=== PATIENT | male | born 1965 | race Caucasian/White ===

== ENCOUNTER 2019-03-08 08:55 | Emergency (ER) | payer BC ==
--- NOTE | 2019-03-08 08:56 | EDM.PDOC ---
ED HPI GENERAL MEDICAL PROBLEM - General Stated Complaint: PT FELL Time Seen by Provider: 03/08/19 08:55 Source of Information: Reports: Patient History Limitations: Reports: No Limitations - History of Present Illness INITIAL COMMENTS - FREE TEXT/NARRATIVE: HISTORY AND PHYSICAL: History of present illness: Patient is a 63-year-old male presenting to the emergency room for posterior rib and sacral back pain. Patient reports falling down the stairs on Friday. He states he fell down 4 stairs and is unsure what he landed on or how he landed. He states he did hit his head, denies loss of consciousness. Denies headache, dizziness, blurring of vision, nausea, or vomiting. Patient states he has right posterior lower back pain starting at the ribs going all the way down to his sacrum. Patient describes his pain at a 5 out of 10 while sitting. Aggravating factors including coughing, which he describes as "the worst pain" or movement, alleviating factors include sitting still. Patient states "I can't breathe". He denies chest pain, but pain located in his right posterior ribs. He does have a superficial laceration to the medial side of his fourth and fifth digits on his left hand and left foot. Tdap has been UTD within the last 5 years. Review of systems: As per history of present illness and below otherwise all systems reviewed and negative. Past medical history: As per history of present illness and as reviewed below otherwise noncontributory. Surgical history: As per history of present illness and as reviewed below otherwise noncontributory. Social history: See social history for further information Family history: As per history of present illness and as reviewed below otherwise noncontributory. Physical exam: General: Well-nourished and well-developed 53-year-old male. Alert and orientated. Nontoxic in appearance. Vital signs are stable and have been reviewed by me. HEENT: Small scrape to the right side of his head, normocephalic, pupils equal and reactive bilaterally, negative for conjunctival pallor or scleral icterus, mucous membranes moist, TMs normal bilaterally, throat clear, neck supple, nontender, trachea midline. No drooling or trismus noted. No meningeal signs. No hot potato voice noted. Lungs: Inspiratory and expiratory wheezing, decrease lung sounds in the posterior right lower lobe. Right posterior chest wall pain with palpation. Heart: S1S2, regular rate and rhythm without overt murmur Abdomen: Soft, nondistended, nontender. Negative for masses or hepatosplenomegaly. Negative for costovertebral tenderness. C-Spine/Back: Tenderness upon palpation to the sacrum. No pinpoint tenderness to the cervical, thoracic, lumbar spine. No crepitus, step-offs or obvious deformities. Patient is ambulatory into the emergency room without difficulty or deficit. Able to rock back on heels and walk on toes. Denies any urinary or fecal incontinence. Denies any numbness, tingling or saddle paresthesia. Pelvis: Stable nontender. Skin: Superficial laceration/abrasion to the medial side of the fourth and fifth digits of the left hand and his left great toe. Otherwise skin is intact, warm, dry See HEENT. Extremities: Moves all extremities per self without difficulty or deficits, negative for cords or calf pain. Neurovascular unremarkable. Neuro: Awake, alert, oriented. Cranial nerves II through XII unremarkable. Cerebellum unremarkable. Motor and sensory unremarkable throughout. Exam nonfocal. Notes: On arrival to the ER his oxygen was 88% on room air. He was put on 4L via Nasal Cannula, which upped his oxygen saturation to 92%. Upon reevaluating the patient he is 94% on room air. Wound care was provided for the superficial abrasion/lacerations. The x-ray reports show no acute findings. We discussed using an incentive spirometer for home. Medication and supportive care measures were reviewed and discussed. Voices understanding and is agreeable to plan of care. Denies any further questions or concerns at this time. Diagnostics: Chest X-Ray 2V Therapeutics: 4L via [place] Prescription: [place] Albuterol Inhaler Impression: Fall Rib Injury, right Abrasion Plan: 1. Keep the abrasions clean and dry. Continue to monitor for signs of improvement. You may use bacitracin as needed. 2. Please use your incentive spirometer to avoid/prevent any further complications related to your rib injury. 3. Tylenol and/or ibuprofen as needed for pain management. [place] for moderate to severe pain. This medication may cause drowsiness a do not take it will driving her needing to be functioning outside of the house. 4. At the pharmacy or [facility] can fiber picker a "doughnut seat" or cut out cushion to alleviate any tailbone discomfort when sitting for long periods of time. 5. Follow-up with your primary care provider as we discussed. Return to the ED as needed and as discussed. Definitive disposition and diagnosis as appropriate pending reevaluation and review of above. Right Upper Back Pain Score (Numeric/FACES): 10 - Related Data Allergies Allergy/AdvReac Type Severity Reaction Status Date / Time No Known Allergies Allergy Verified 03/08/19 09:12 Home Meds: Home Meds . [No Known Home Meds] 04/05/15 [History] Past Medical History - Past Health History Medical/Surgical History: Denies Medical/Surgical History ED ROS GENERAL - Review of Systems Review Of Systems: ROS reveals no pertinent complaints other than HPI. ED EXAM, GENERAL - Physical Exam Exam: See Below (See dictation) Course - Vital Signs Last Recorded V/S: Last Vital Signs Temp 97.5 F 03/08/19 09:08 Pulse 111 H 03/08/19 09:08 Resp 18 03/08/19 09:08 BP 167/105 H 03/08/19 09:08 Pulse Ox 93 L 03/08/19 09:27 - Orders/Labs/Meds Orders: Active Orders 24 hr Category Date Time Status RT Aerosol Therapy [RC] ASDIRECTED Care 03/08/19 09:15 Active Meds: Medications Discontinued Medications Generic Name Dose Route Start Last Admin Trade Name Freq PRN Reason Stop Dose Admin Albuterol/Ipratropium 3 ml 03/08/19 09:15 03/08/19 09:24 Duoneb 3.0-0.5 Mg/3 Ml NEB 03/08/19 09:16 3 ml ONETIME ONE Administration Albuterol/Ipratropium Confirm 03/08/19 09:15 03/08/19 09:25 Duoneb 3.0-0.5 Mg/3 Ml Administered 03/08/19 09:16 Not Given Dose 3 ml .ROUTE .STK-MED ONE Ketorolac Tromethamine 60 mg 03/08/19 10:43 03/08/19 10:49 Toradol IM 03/08/19 10:44 60 mg ONETIME ONE Administration Departure - Departure Time of Disposition: 11:12 Disposition: Home, Self-Care 01 Clinical Impression: Rib pain on right side, Abrasion Fall Qualifiers: Encounter type: initial encounter Qualified Code(s): W19.XXXA - Unspecified fall, initial encounter - Discharge Information Instructions: Chest Wall Pain, [id number] Referrals: PCP,Unknown [Primary Care Provider] - Additional Instructions: The following information is given to patients seen in the emergency department who are being discharged to home. This information is to outline your options for follow-up care. We provide all patients seen in our emergency department with a follow-up referral. The need for follow-up, as well as the timing and circumstances, are variable depending upon the specifics of your emergency department visit. If you don't have a primary care physician on staff, we will provide you with a referral. We always advise you to contact your personal physician following an emergency department visit to inform them of the circumstance of the visit and for follow-up with them and/or the need for any referrals to a consulting specialist. The emergency department will also refer you to a specialist when appropriate. This referral assures that you have the opportunity for follow-up care with a specialist. All of these measure are taken in an effort to provide you with optimal care, which includes your follow-up. Under all circumstances we always encourage you to contact your private physician who remains a resource for coordinating your care. When calling for follow-up care, please make the office aware that this follow-up is from your recent emergency room visit. If for any reason you are refused follow-up, please contact the [facility] Emergency Department at and asked to speak to the emergency department charge nurse. [facility] [address] [place] [id number] [address] [address] 1. Keep the abrasions clean and dry. Continue to monitor for signs of improvement. You may use bacitracin as needed. 2. Please use your incentive spirometer to avoid/prevent any further complications related to your rib injury. 3. Tylenol and/or ibuprofen as needed for pain management. [place] for moderate to severe pain. This medication may cause drowsiness a do not take it will driving her needing to be functioning outside of the house. 4. At the pharmacy or [facility] can fiber picker a "doughnut seat" or cut out cushion to alleviate any tailbone discomfort when sitting for long periods of time. 5. Follow-up with your primary care provider as we discussed. Return to the ED as needed and as discussed. - My Orders Last 24 Hours: My Active Orders 03/08/19 09:15 RT Aerosol Therapy [RC] ASDIRECTED - Assessment/Plan Last 24 Hours: My Active Orders 03/08/19 09:15 RT Aerosol Therapy [RC] ASDIRECTED
[2019-03-08] MEDS ORDERED: Albuterol/Ipratropium 3.0-0.5 MG/3 ML Neb Soln NEB ONE (09:15)
[2019-03-08] MEDS ORDERED: Albuterol/Ipratropium 3.0-0.5 MG/3 ML Neb Soln ONE (09:15)
[2019-03-08] MEDS ORDERED: Ketorolac 60 MG/2 ML SDV IM ONE (10:43)
--- NOTE | 2019-03-08 11:06 | CR ---
Sacrum and coccyx: Three views of the sacrum and coccyx were obtained. Minimal sclerosis is noted within the inferior right sacroiliac joint. Sacrum and coccyx otherwise appears unremarkable. No fracture or other abnormality is seen. Impression: 1. Slight degenerative sclerosis within the inferior right sacroiliac joint. 2. Three-view sacrum and coccyx study is otherwise unremarkable. Diagnostic code #2 MTDD
--- NOTE | 2019-03-08 11:06 | CR ---
Chest and right ribs: Frontal view of the chest was obtained as well as four views of the right ribs. Comparison: No previous rib or chest x-ray is available. HeaCrt size and mediastinum are normal. Lungs are clear. No discrete fracture or other right sided rib abnormality is appreciated. Impression: 1. Nothing acute is seen on frontal chest x-ray. 2. No discrete right-sided rib abnormality is appreciated. Diagnostic code #1 MTDD
[2019-03-08 15:40] VITALS: BP 166/76; PULSE 87
== END 2019-03-08 11:25 | disposition home or self-care (01) ==
LOC: MW.ED 08:55
DX: S20.311A Abrasion of right front wall of thorax, initial encounter (principal); S61.215A Laceration without foreign body of left ring finger without damage to nail, initial encounter; S61.217A Laceration without foreign body of left little finger without damage to nail, initial encounter; W10.9XXA Fall (on) (from) unspecified stairs and steps, initial encounter
CPT/HCPCS: 71101; 72220; 94640; 96372; 99283; J1885; J7620-GY

== ENCOUNTER 2020-10-04 06:38 | Day surgery (SDC) | payer BC ==
[~2020-10-04 06:38] MED LIST: Lactated Ringers 1,000 ML IV SCH
[2020-10-04] MEDS ORDERED: Propofol 200 MG/20 ML SDV ONE (07:10)
[2020-10-04] MEDS ORDERED: Lidocaine 2% 5 ML SDV ONE (07:10)
[2020-10-04] MEDS ORDERED: Glycopyrrolate 0.2 MG/ML SDV ONE (07:10)
[2020-10-04] MEDS ORDERED: Midazolam 1 MG/ML 2 ML SDV ONE (07:10)
--- NOTE | 2020-10-04 07:26 | PCM.PREANE ---
Preanesthetic Assessment - Anesthesia/Transfusion/Family Hx Anesthesia History: Prior Anesthesia Without Reaction Family History of Anesthesia Reaction: No Transfusion History: No Prior Transfusion(s) - Review of Systems General: No Symptoms Pulmonary: No Symptoms Cardiovascular: No Symptoms Gastrointestinal: No Symptoms Neurological: No Symptoms Other: Reports: None - Physical Assessment NPO Status Date: 10/04/20 NPO Status Time: 00:01 Vital Signs: Last Vital Signs Temp 96.8 F L 10/04/20 06:50 Pulse 84 10/04/20 06:50 Resp 16 10/04/20 06:50 BP 158/102 H 10/04/20 07:10 Pulse Ox 97 10/04/20 06:50 Height: 6 ft 1 in Weight: 183 lb ASA Class: 3 Mental Status: Alert & Oriented x3 Airway Class: Mallampati = 2 Dentition: Reports: Normal Dentition, Broken Tooth/Teeth, Missing Tooth/Teeth ROM/Head Extension: Limited/Partial Lungs: Clear to Auscultation, Normal Respiratory Effort Cardiovascular: Regular Rate, Regular Rhythm - Allergies Allergies/Adverse Reactions: Allergies Allergy/AdvReac Type Severity Reaction Status Date / Time No Known Allergies Allergy Verified 10/04/20 07:16 - Anesthesia Plan Pre-Op Medication Ordered: None - Acknowledgements Anesthesia Type Planned: General Anesthesia Pt an Appropriate Candidate for the Planned Anesthesia: Yes Alternatives and Risks of Anesthesia Discussed w Pt/Guardian: Yes Pt/Guardian Understands and Agrees with Anesthesia Plan: Yes Additional Comments: npo elevated bp when at dr's office, says it normal at home no cv rpoblems tob 1 ppd etoh daily pint of hard liquer a day last used 1 weeks ago hx abuse copd asthma prn inhalers bmi 24 par no questsions PreAnesthesia Questionnaire - Past Health History Medical/Surgical History: Denies Medical/Surgical History HEENT History: Reports: Other (See Below) Other HEENT History: uses reading glasses Cardiovascular History: Other Cardiovascular History: states he gets anxious when he has to wait and his BP goes up Respiratory History: Reports: COPD Gastrointestinal History: Reports: Chronic Diarrhea, GERD Other Gastrointestinal History: current abdominal pain and vomiting Other Genitourinary History: hx of urethral stricture, currently having symptoms again Musculoskeletal History: Reports: Back Pain, Chronic, Fracture Other Musculoskeletal History: hx of fx wrist and fingers Neurological History: Reports: None Psychiatric History: Reports: None Endocrine/Metabolic History: Reports: None Hematologic History: Reports: None Immunologic History: Reports: None Oncologic (Cancer) History: Reports: None Dermatologic History: Reports: None - Infectious Disease History Infectious Disease History: Reports: Chicken Pox, Shingles - Past Surgical History Head Surgeries/Procedures: Reports: None HEENT Surgical History: Reports: Eye Surgery, Tonsillectomy Other HEENT Surgeries/Procedures: repair of eye injury as a child GI Surgical History: Reports: None Other Female Surgeries/Procedures: urethral dilitation Male Surgical History: Reports: Other (See Below) Endocrine Surgical History: Reports: None Neurological Surgical History: Reports: None Musculoskeletal Surgical History: Reports: Other (See Below) Other Musculoskeletal Surgeries/Procedures:: repair of traumatic leg injury - SUBSTANCE USE Tobacco Use Status *Q: Current Every Day Tobacco User Tobacco Use Within Last Twelve Months: Cigarettes Recreational Drug Use History: No - HOME MEDS Home Medications: Home Meds Albuterol Sulfate [Proair Hfa] 2 puff IH Q4HR PRN #1 [id number] 03/08/19 [Rx] Tamsulosin HCl 0.4 mg PO DAILY 09/29/20 [History] - CURRENT (IN HOUSE) MEDS Current Meds: Current Medications Lactated Ringer's (Ringers, Lactated) 1,000 mls @ 125 mls/hr IV ASDIRECTED FOR[facility], 1928–1983 Last Admin: 10/04/20 07:15 Dose: 125 mls/hr Documented by: Discontinued Medications Glycopyrrolate (Glycopyrrolate 0.2 Mg/Ml Sdv) Confirm Administered Dose 0.2 mg .ROUTE .STK-MED ONE Stop: 10/04/20 07:11 Lidocaine (Lidocaine 2% 5 Ml Sdv) Confirm Administered Dose 5 ml .ROUTE .STK-MED ONE Stop: 10/04/20 07:11 Midazolam HCl (Midazolam 1 Mg/Ml 2 Ml Sdv) Confirm Administered Dose 2 mg .ROUTE .STK-MED ONE Stop: 10/04/20 07:11 Propofol (Propofol 200 Mg/20 Ml Sdv) Confirm Administered Dose 600 mg .ROUTE .STK-MED ONE Stop: 10/04/20 07:11
--- NOTE | 2020-10-04 08:29 | PCM.OPNOTE ---
- General Post-Op/Procedure Note Date of Surgery/Procedure: 10/04/20 Operative Procedure(s): egd w bx. colonoscopy w bx Findings: see [id number] Pre Op Diagnosis: change in bowel habbits and wt loss and gerd Post-Op Diagnosis: Same Anesthesia Technique: Moderate Sedation Primary Surgeon: Nelson Muller Pathology: egd bx and colon random bx Complications: None Condition: Good
--- NOTE | 2020-10-04 09:42 | PCM.POSTAN ---
POST ANESTHESIA ASSESSMENT - MENTAL STATUS Mental Status: Alert (no anesthetic problems), Oriented - VITAL SIGNS Vital Signs: Last Vital Signs Temp 96.8 F L 10/04/20 06:50 Pulse 78 10/04/20 08:30 Resp 15 10/04/20 08:30 BP 133/86 10/04/20 08:30 Pulse Ox 97 10/04/20 08:30 - RESPIRATORY Respiratory Status: Respiratory Rate WNL, Airway Patent, O2 Saturation Stable - CARDIOVASCULAR CV Status: Pulse Rate WNL, Blood Pressure Stable - GASTROINTESTINAL GI Status: No Symptoms - POST OP HYDRATION Hydration Status: Adequate & Stable
[2020-10-04 09:53] VITALS: BP 138/89; PULSE 70
--- NOTE | 2020-10-04 10:32 | PCM48HPAN ---
Post Anesthesia Note - EVALUATION WITHIN 48HRS OF ANESTHETIC Vital Signs in Normal Range: Yes Patient Participated in Evaluation: Yes Respiratory Function Stable: Yes Airway Patent: Yes Cardiovascular Function Stable: Yes Hydration Status Stable: Yes Pain Control Satisfactory: Yes Nausea and Vomiting Control Satisfactory: Yes Mental Status Recovered: Yes Vital Signs: Last Vital Signs Temp 98.2 F 10/04/20 08:40 Pulse 70 10/04/20 08:40 Resp 16 10/04/20 08:40 BP 138/89 10/04/20 08:40 Pulse Ox 96 10/04/20 08:40
--- NOTE | 2020-10-04 16:08 | OR ---
SURGEON: Nelson Muller MD DATE OF PROCEDURE: 10/04/2020 PREOPERATIVE DIAGNOSIS: Change in bowel habit, weight loss, and poor appetite. POSTOPERATIVE DIAGNOSIS: Change in bowel habit, weight loss, and poor appetite. PROCEDURES PERFORMED: 1. Esophagogastroduodenoscopy with biopsy. 2. Colonoscopy with random biopsy. DESCRIPTION OF PROCEDURE: EGD: The patient was taken to the endoscopy room, and with the STERILIZATION TECHNICIAN, Diprivan was administered. A well-lubricated EGD scope was gently inserted through the oropharynx, down the esophagus, passing through the gastroesophageal junction, into the stomach. The mucosa was examined upon the passage. Any etiology will be noted. Once in the stomach, we continued to advance to the distal antrum, passed through the pylorus into the second portion of the duodenum. Again, the mucosa was examined for any abnormality and etiology. The scope was then retrieved back to the stomach and then retroflexed to look at the fundus of the stomach. If a biopsy was indicated, we will biopsy the antrum, body, and gastroesophageal junction. The air will be sucked out while the scope is retrieved to reduce the patient's discomfort. The patient tolerated the procedure well. There were no intraoperative complications. Dr. Muller was present through the whole procedure. Prior to surgery, a time-out had been called, the patient identified, procedure identified and antibiotic administered. Colonoscopy: The patient was taken to the endoscopy room. A time out was called, patient identified, and procedure identified. Diprivan was then administrated. Patient went from awake to sleep, hearing doctor talking or door closing is normal. Perineum inspection and digital examination were then performed. A well-lubricated colonoscope was gently inserted through the rectum, advanced past the rectosigmoid junction, the descending colon, splenic flexure, transverse colon, hepatic flexure, ascending colon, arrived to the cecum. Cecum was identified as dictated in the finding. Then the scope was carefully withdrawn while attention was paid to the mucosal surface for any abnormality. Air will be sucked out during the scope withdrawal. At the rectum, retroflexed to examine any rectal diseases, fistula or hemorrhoids. During mucosal examination, abnormality or polyp was noted; picture taken and biopsy performed. Patient tolerated procedure well. There were no intraoperative complications, and Dr. Muller was present throughout the whole procedure. FINDINGS: EGD findings: 1. The patient is easily sedated with STERILIZATION TECHNICIAN and Diprivan, the patient is soundly snoring. 2. Oropharynx and proximal esophagus are free of disease, and proximal esophagus has no stricture, varicosity, or inflammation. Distal esophagus at GE junction at 40 shows flame like salmon-colored change, consistent with esophagitis. There is no ulcer. There is no blood and stomach rugae are normal in appearance and there is a little bit bile in the stomach and a little bit of petechiae old blood in the stomach, but there is no blood clot. Antrum looks fine. Duodenum looks grossly normal. Retroflexed look at the fundus of stomach, there is no hiatal hernia. Biopsy done at antrum, body, GE junction at 40. I made sure the biopsies passed the GE junction, so pulled back the scope a bit and biopsied and sucked out the gas while scope pulling out. During the whole study, there is no food, no blood, no ulcer. There is a little bit bile in the stomach. Colonoscopy findings: 1. The patient is easily sedated with STERILIZATION TECHNICIAN and Diprivan, the patient is soundly snoring. 2. Bowel prep is average. Large amount of liquid stool, no semi-formed stool, no stool ball. 3. Colon is rather redundant at the sigmoid requiring abdominal compression. Cecum was indicated by ileocecal fold, one-to-one indentation, appendiceal orifice. ScopeGuide is pointing south. Mucosa examined upon scope pulling out and also random biopsy was done for abdominal pain. The patient does not have diverticulosis, polyp, mass, growth, inflammation, stricture, AV malformation, bleeding, none of those. The patient has some external hemorrhoids, mild; some internal hemorrhoids, mild. The patient has a dot at the 12 o'clock area, looked like a fissure. I probed at it and looked like it is a blind end. Bottom line: The patient would benefit from repeat colonoscopy in 10 years from today or if clinically indicated otherwise or if the random biopsy suggested otherwise. Because of the EGD finding, we will put the patient on 40 mg p.o. omeprazole for one month with three refills. The patient also is a big time drinker per family member, one pint every day. The patient has to hold off or cut down his drinking and take the omeprazole. We will discuss this on followup visit. JENNIFER SILVER /[id number] GRACE
== END 2020-10-04 08:55 | disposition home or self-care (01) ==
LOC: MW.SDS 06:38
PROVIDERS: ATTEND Surgery
DX: K21.00 Gastro-esophageal reflux disease with esophagitis, without bleeding (principal); K31.89 Other diseases of stomach and duodenum; I78.1 Nevus, non-neoplastic; K63.89 Other specified diseases of intestine; K64.4 Residual hemorrhoidal skin tags; K64.8 Other hemorrhoids; F17.210 Nicotine dependence, cigarettes, uncomplicated; J43.9 Emphysema, unspecified; R63.4 Abnormal weight loss; Z68.24 Body mass index [BMI] 24.0-24.9, adult; Z79.899 Other long term (current) drug therapy
CPT/HCPCS: 43239; 45380; J2250; J2704; J3490; J7120; 00813; 88305; 88312